=== PATIENT | male | born 1975 | race Caucasian/White ===

== ENCOUNTER 2023-03-03 06:25 | Emergency (ER) | payer SELFPAY ==
[~2023-03-03] VITALS: Ht 170.2 cm; Wt 79.4 kg
[2023-03-03 06:32] VITALS: BP 201/121
[2023-03-03] MEDS ORDERED: lisinopriL 20 MG TAB PO ONE (07:15)
[2023-03-03] MEDS ORDERED: CLONIDINE HYDROCHLORIDE 0.1 MG TAB PO ONE (07:15)
[2023-03-03 08:04] VITALS: BP 185/113
--- NOTE | 2023-03-03 08:08 | NUR ---
ASSUMED CARE . HERE FOR OK TO BOOK, HYPERTENSIVE, HX OGF HTN. NON COMPLIANT. MEDS GIVEN ORDERED
--- NOTE | 2023-03-03 08:30 | NUR ---
Chucho santos in [facility] - 03/03/23 at 0858 by NILESH PATIENT LEFT WITHOUT DISCHARGE PAPERWORK
--- NOTE | 2023-03-03 08:56 | NUR ---
DR YUNG PROVIDED PT VERBAL DC INSTRUCTION
--- NOTE | 2023-03-03 08:56 | NUR ---
PT WAS RELEASED BY PD , LEFT WITHOUT TRECEIVING WRITTEN DC INSTRUCTIONS
--- NOTE | 2023-03-03 08:56 | NUR ---
Patient discharged with v/s stable. Written and verbal after care instructions given and explained. Patient verbalized understanding. Ambulatory with to home. All questions addressed prior to discharge. Advised to follow up with PMD.
== END 2023-03-03 08:56 | disposition home or self-care (01) ==
LOC: MED 06:25
DX: I10 Essential (primary) hypertension (principal); E11.9 Type 2 diabetes mellitus without complications; Z86.73 Personal history of transient ischemic attack (TIA), and cerebral infarction without residual deficits
CPT/HCPCS: 99283